=== PATIENT | female | born 1940 | race Caucasian/White ===

== ENCOUNTER 2022-08-24 10:43 | Emergency (ER) | payer MEDICARE, BC, SELFPAY ==
[2022-08-24 10:55] VITALS: BP 129/72; PULSE 101; RESP 18; TEMP 36.8; O2SAT 93
--- NOTE | 2022-08-24 13:26 | ED.GENADUL_ITS ---
Discharge Plan Disposition Patient Disposition: Home Condition: Stable Discharge Details Clinical Impression: Acute neck pain, Muscle spasm Primary Care Provider: Carina Jaimes ED Provider: Dorcas Angeles Home Meds and New Rx's Prescriptions: Continued lisinopril-hydrochlorothiazide 20-12.5 mg tablet 1 tab PO DAILY atorvastatin 40 mg tablet 40 mg PO QHS diclofenac sodium [Arthritis Pain (diclofenac)] 1 % gel 2 g topical BID Rx Instructions: apply to single elbow, wrist or hand; for hand includes palm/fingers/back of hand donepezil 23 mg tablet 23 mg PO DAILY Eliquis 2.5 mg tablet 2.5 mg PO BID magnesium 250 mg tablet 250 mg PO BID melatonin 3 mg tablet 3 mg PO HS PRN atenolol 25 MG tablet 25 mg PO DAILY aspirin 81 MG tablet,delayed release (DR/EC) 81 mg PO DAILY calcium carbonate-vitamin D3 1 EACH tablet 1 ea PO BID acetaminophen [Tylenol] 325 MG tablet 650 mg PO Q6H PRN PRN0RF ibuprofen 400 MG tablet 400 mg PO Q6H PRN0RF levothyroxine 75 mcg tablet 75 mcg PO DAILY Patient Comments: TAKE ONE TABLET BY MOUTH IN THE MORNING mirtazapine 7.5 mg tablet 7.5 mg PO DAILY Patient Comments: TAKE 1 TABLET EVERY DAY BY ORAL ROUTE AT BEDTIME ramelteon 8 mg tablet 8 mg PO HS Patient Comments: Take 1 tablet every day by oral route at bedtime - pt reports she does not have this med; unsure if she threw away by accident (08/24) Discharge Instructions Instructions: Muscle Spasm (ED), Neck Pain (ED) Additional Instructions: Your imaging is reassuring here today. No evidence of fracture or dislocation. There is evidence of arthritis. This may be associated with muscle spasm. Please encourage hydration. Tylenol as needed for discomfort. You may also try topical option such as lidocaine patches, heat or ice. Please follow-up with primary care in 1 week for reevaluation. You may continue with the soft collar as needed to help with discomfort. Referral for physical therapy is also attached. If you develop increased pain, weakness, sensory changes or other new/worsening symptom please seek care urgently once again. Stand Alone Forms: Physical Therapy Referral Referrals: Carina Jaimes [Primary Care Provider] - Discharge Data Discharge Date/Time-TO BE ENTERED AT DEPARTURE: 08/24/22 16:27 Medical Decision Making Patient is a pleasant 82-year-old female with past medical history significant for hypercholesterolemia, sensorineural hearing loss, presnting today with c/c of neck pain. She describes insidious onset began a few days ago. Denies any trauma. No radiation of pain. Describes it is consistently being midline worsened with rotational or flexion injuries. Denies any numbness or tingling. Is not noted any weakness. No fevers or chills. Denies any chest pain, shortness of breath, abdominal pain, nausea, vomiting, visual changes. On exam, patient appears uncomfortable but nontoxic. She is hemodynamically stable. Breathing comfortably nonlabored. She has point tenderness near C3 with any type of movement of the neck, this is reproducible with palpation. She is preferring to hold her head in a semiflexed position but further flexion or extension, rotation to either right or left induces severe pain. She has intact sensation in all of her extremities. No saddle anesthesias. She has 5-5 strength in bilateral upper and lower extremities. No chest pain or shortness of breath. I do not believe the patient will tolerate a fitted collar, will apply a soft collar to support her neck and help and aid in discomfort as well as immobilization and will move forward with CT scan. Patient initially seen apprehensive to take any medications but is agreeable to a dose of acetaminophen. FINDINGS: Bones: No acute fractures or subluxations are seen.? There is 3 mm anterolisthesis of C4 on C5.? This is likely degenerative.? No suspicious lytic or sclerotic lesions are seen.? There are endplate osteophytes at multiple levels of the cervical spine particularly at C5-6 through C6-C7.? There is degenerative facet arthropathy throughout the cervical spine. Disc levels: No focal disc herniation is seen in the cervical spine.? No significant central spinal canal or neural foraminal stenosis is seen in the cervical spine. Soft Tissues: The soft tissues of the neck are unremarkable.? IMPRESSION: 1. No acute fracture or subluxation. 2. Multilevel degenerative changes in the cervical spine.? No significant central spinal canal or neural foraminal stenosis is present. 3. 3 mm anterolisthesis of C4 on C5 which is likely degenerative. Patient is some relief with the acetaminophen. We discussed the above imaging. She has a soft collar which did help some with discomfort although she did used to take this off after wearing it for some time. Will refer to physical therapy. Encourage close follow-up with primary care. Strict return precautions were discussed. I advised that she continue with the acetaminophen. We will also place a lidocaine patch. Due to the patient's age as well as her comorbidities, I am hesitant to give her any type of narcotic or muscle relaxant secondary to their side effect profile. All of her questions and concerns were addressed and she is agreement this plan. [facility] General Date/Time Provider Initiated Documentation: 08/24/22 11:12 . Limitations to Documentation: no limitations . Information obtained by: patient and RN notes reviewed . History of Present Illness 82 year old F presents to the emergency department with the chief complaint of neck pain, described as severe, Quality is described as aching, and is localized to the neck. Patient reports no radiation. Patient started experiencing this day(s) and it has been constant. Immobilization improves symptom(s), Movement worsens symptoms . Patient notes no other symptoms.. Patient did receive the following treatments prior to arrival, none Related Data Home Medications Medication Instructions Recorded Confirmed aspirin 81 mg tablet,delayed 81 mg PO DAILY 03/25/16 08/24/22 release atenolol 25 mg tablet 25 mg PO DAILY 03/25/16 02/06/21 calcium carbonate 600 mg-vitamin 1 ea PO BID 03/25/16 08/24/22 D3 10 mcg (400 unit) tablet acetaminophen 325 mg tablet 650 mg PO Q6H PRN PRN 01/25/17 08/24/22 (Tylenol) ibuprofen 400 mg tablet 400 mg PO Q6H PRN 01/25/17 03/12/22 lisinopril 20 1 tab PO DAILY 02/06/21 08/24/22 mg-hydrochlorothiazide 12.5 mg tablet apixaban 2.5 mg tablet (Eliquis) 2.5 mg PO BID 03/12/22 08/24/22 atorvastatin 40 mg tablet 40 mg PO QHS 03/12/22 08/24/22 diclofenac sodium 1 % topical gel 2 g topical BID 03/12/22 08/24/22 (Arthritis Pain (diclofenac)) donepezil 23 mg tablet 23 mg PO DAILY 03/12/22 08/24/22 magnesium 250 mg tablet 250 mg PO BID 03/12/22 08/24/22 melatonin 3 mg tablet 3 mg PO HS PRN 03/12/22 08/24/22 levothyroxine 75 mcg tablet 75 mcg PO DAILY 08/24/22 08/24/22 mirtazapine 7.5 mg tablet 7.5 mg PO DAILY 08/24/22 08/24/22 ramelteon 8 mg tablet 8 mg PO HS 08/24/22 08/24/22 Previous Rx's Medication Instructions Recorded acetaminophen 325 mg tablet 650 mg PO Q6H PRN PRN 01/25/17 (Tylenol) ibuprofen 400 mg tablet 400 mg PO Q6H PRN 01/25/17 Allergies Allergy/AdvReac Type Severity Reaction Status Date / Time cyclobenzaprine Allergy Verified 08/24/22 11:00 General Stated Complaint: Nk/Back Pain CARLEE: 4 Review of Systems Constitutional Constitutional: Reports as per HPI, Denies fever(s), Denies headache(s) and Denies weakness ENT Ears, Nose, Mouth, and Throat: Denies headache(s) Cardiovascular Cardiovascular: Reports as per HPI Respiratory Respiratory: Reports as per HPI and Denies cough Musculoskeletal Musculoskeletal: Reports as per HPI and Denies tingling Integumentary/Breasts Skin/Breast: Reports as per HPI, Denies rash and Denies wounds Neurologic Neurologic: Reports as per HPI, Denies headache(s), Denies tingling, Denies paresthesias and Denies weakness PFSH All Active Problems (Updated 08/24/22 @ 16:09 by PAKO Jaimes) Acute neck pain (Acute) Muscle spasm (Acute) Impairment of speech discrimination (Acute) Dizziness (Acute) Thyroid nodule (Acute) Herniated disc (Acute) Hypercholesterolemia (Acute) Asymmetrical sensorineural hearing loss (Acute) Sensorineural hearing loss (SNHL) of both ears (Acute) Submandibular gland inflammation (Acute) Intra-abdominal abscess post-procedure (Acute) Fistula (Acute) Hypomagnesemia (Acute) Hypokalemia (Acute) nutrition (Acute) Leukocytosis (Acute) DVT prophylaxis (Acute) Medical History Atrophic vaginitis Backache Dyslipidemia Hearing loss Hypertensive disorder Increased frequency of urination Neck pain Osteoporosis Rib pain Scoliosis deformity of spine Shoulder pain Thrombocytopenic disorder Trochanteric bursitis Ulnar neuritis Surgical History section Extraction of cataract History of colonoscopy History of stapedectomy myringotomy Family History Mother Breast tumor Breast cancer Hypertension Son Schizophrenia Depressive disorder Social History Smoking/Tobacco Use Status: Never Smoking risk assessment performed?: Yes Alcohol Intake: never Drug use: Never Household members: none current occupation: Retired Pets and animals: Yes Pets and animals: cat(s) What is your relationship status?: Panel score (0-1 are the most socially isolated patients): 0 Do you feel safe at home: Yes Do you feel safe in your relationship?: Yes Additional Social history: pt normally lives alone but is currently staying with son Exam Const General: cooperative, healthy appearing, comfortable (appears comfortable when aat rest, pain with movement), no acute distress, well developed and well groomed Nutritional Appearance: average body habitus and well nourished Orientation: alert and awake [facility] Head: normal to inspection, no palpable skull fracture, normocephalic and atraumatic Face and sinus: normal facial exam Eyes General: appearance normal, both eyes and all related structures Neck Neck: normal visual inspection, limited ROM, no lymphadenopathy, trachea midline and torticollis Chest Chest: normal inspection of the chest, normal palpation of entire chest wall, no crepitus and no localized rib tenderness Resp Effort & Inspection: normal respiratory effort, able to speak in complete sentences and no respiratory distress Auscultation: clear to auscultation bilaterally Cardio Rate: regular rate Rhythm: regular rhythm Heart Sounds: S1 normal and S2 normal Back/Spine/Pelvis Cervical Spine: normal cervical lordosis, No cervical ROM normal (limited in all directions), cervical muscular tenderness, pain with cervical ROM, cervical spasm, cervical spinal tenderness, No step off deformity and cervical ROM abnormal Thoracic/Lumbar Spine: thoracic and lumbar spine normal to inspection, No paraspinal tenderness, No thoraco-lumbar spasm, No thoracic spinal tenderness and No lumbar spinal tenderness Skin General skin exam: no rashes or lesions noted Lesions: no lesions Rashes: no rashes Trauma: no lacerations or abrasions Neuro General: patient alert and patient awake Cranial Nerves: CN's II-XI intact bilaterally Cognition: normal cognition Speech: speech normal Gait: normal gait Motor: muscle tone normal throughout and strength 5/5 throughout Sensory Exam: no sensory deficits noted Psych Appearance: grossly normal and well kempt Mental Status: mental status grossly normal Speech and Movement: speech and movement normal Course Vital Signs Vital signs: Vital Signs Temperature 36.8 C 08/24/22 10:55 Pulse 101 H 08/24/22 10:55 Respiratory Rate 18 08/24/22 10:55 Blood Pressure 129/72 08/24/22 10:55 Pulse Oximetry 93 08/24/22 10:55 Temperature 36.8 C 08/24/22 10:55 Temperature Source Oral 08/24/22 10:55 Pulse 101 H 08/24/22 10:55 Respiratory Rate 18 08/24/22 10:55 Respiratory Effort Normal, Non-Labored 08/24/22 11:08 Blood Pressure 129/72 08/24/22 10:55 Pulse Oximetry 93 08/24/22 10:55 Oxygen Delivery Method Room Air 08/24/22 10:55 Oxygen Flow Rate 0 08/24/22 10:55 Pain Level 9 08/24/22 10:55
[2022-08-24] MEDS: Acetaminophen 325 MG TAB 650 MG PO (13:39)
--- NOTE | 2022-08-24 14:30 | DI.CT_ITS ---
Exam(s) CT CERVICAL SPINE WO EXAM: CT CERVICAL SPINE WO CLINICAL HISTORY: atraumatic midline pain. TECHNIQUE: Imaging Protocol: Axial computed tomography images with coronal and sagittal reformatted images were created and reviewed COMPARISON: No exams were available for comparison FINDINGS: Bones: No acute fractures or subluxations are seen. There is 3 mm anterolisthesis of C4 on C5. This is likely degenerative. No suspicious lytic or sclerotic lesions are seen. There are endplate oste ophytes at multiple levels of the cervical spine particularly at C5-6 through C6-C7. There is degene rative facet arthropathy throughout the cervical spine. Disc levels: No focal disc herniation is seen in the cervical spine. No significant central spinal c anal or neural foraminal stenosis is seen in the cervical spine. Soft Tissues: The soft tissues of the neck are unremarkable. IMPRESSION: 1. No acute fracture or subluxation. 2. Multilevel degenerative changes in the cervical spine. No significant central spinal canal or shawn ral foraminal stenosis is present. 3. 3 mm anterolisthesis of C4 on C5 which is likely degenerative. RADIATION DOSE DELIVERED: 377.46mGy.cm Total DLP 377.46mGy.cm Total DLP DATA REPOSITORY: All CT scans at this facility are submitted to the National Radiology Data Registry (NRDR) Dose Index Registry (DIR) with the [employer] ([employer]). RADIATION OPTIMIZATION: All CT scans at this facility use at least one of these dose optimization te chniques: automated exposure control; mA and/or kV adjustment per patient size (includes targeted exa ms where dose is matched to clinical indication); or iterative reconstruction.
[2022-08-24 16:20] VITALS: BP 137/51; PULSE 95; RESP 16; TEMP 37.6; O2SAT 96
[2022-08-24] MEDS: Lidocaine 5% Patch 1 PATCH TP (16:31)
== END 2022-08-24 16:27 | disposition home or self-care (01) ==
PROVIDERS: Emergency Provider Physician Assistant; PCP Nurse Practitioner Family
DX: M54.2 Cervicalgia (principal); M62.838 Other muscle spasm
CPT/HCPCS: 99284; 72125; 99283